=== PATIENT | male | born 1985 | race Caucasian/White ===

== ENCOUNTER 2022-07-14 17:43 | Emergency (ER) | payer MEDICAID, SELFPAY ==
[2022-07-14 17:50] VITALS: BP 115/72; PULSE 102; RESP 14; TEMP 36.9; O2SAT 100
[2022-07-14 18:00] VITALS: BP 115/72; PULSE 102; RESP 14; TEMP 36.9; O2SAT 100
--- NOTE | 2022-07-14 18:14 | ED.DENTAL ---
HPI - Dental/Oral General Chief complaint: Dental/Oral Stated complaint: Facial Swelling Time Seen by Provider: 07/14/22 18:14 Source: patient Mode of arrival: ambulatory History of Present Illness HPI Narrative: 36-year-old male presented for complaints of left lower dental pain and jaw swelling since yesterday. He also endorses treatment with amoxicillin on 06/28, but held onto 2 tablets and took them over the last 2 days. Denies fever, nausea, vomiting. Endorses multiple dental caries and broken teeth stating he would like to follow-up with a dentist and have them pulled when his insurance is available. He is taking Tylenol and ibuprofen for pain MD Complaint: tooth pain Related Data Allergies Allergy/AdvReac Type Severity Reaction Status Date / Time codeine AdvReac Mild NAUSEA/VOMI Verified 07/14/22 18:00 TING Review of Systems Review of Systems: CONSTITUTIONAL: Denies body aches, fever, chills ENT: Denies rhinorrhea, congestion, sore throat, or otalgia. Reports dental pain CARDIOVASCULAR: Denies chest pain, palpitations RESPIRATORY: Denies cough or dyspnea. SKIN: Denies rash, itching, or wounds. MUSCULOSKELETAL: Denies myalgia. NEUROLOGIC: Denies headache, numbness, tingling, or weakness. PMFSH Comments At time of signature, I have reviewed and agree with nursing past medical, surgical, social and family history unless otherwise noted. Please see nursing chart for further information. There is no relevant family history pertinent to the presenting complaint Exam Narrative: GENERAL: Appears in pain; no acute distress. HEAD: Normocephalic, atraumatic. EYES: EOMI. No redness or drainage. Conjunctivae normal. ENT: Dental pain location of #19 with multiple broken teeth and caries; abscess at site and surrounding gum swelling; Mucous membranes pink and moist. TMs normal bilaterally. CHEST: No respiratory distress. Clear to auscultation. HEART: Regular rate and rhythm. SKIN: Warm, dry, no rash. Normal skin turgor. NEURO: No focal deficits. Alert and oriented x3. Gait steady. Course Course Emergency Course: Patient is aware of diagnosis, understands and agrees to treatment plan. Anticipatory guidance given. Patient agrees to follow-up as directed and is aware of reasons to seek care at the emergency department. Portions of this record may have been created with voice recognition software Level of Care: Express Care Visit Vital Signs Vital signs: Vital Signs Temperature 98.5 F 07/14/22 17:50 Pulse Rate 102 H 07/14/22 17:50 Respiratory Rate 14 07/14/22 17:50 Blood Pressure 115/72 07/14/22 17:50 Pulse Oximetry 100 07/14/22 17:50 Oxygen Delivery Room Air 07/14/22 17:50 Temperature 98.5 F 07/14/22 18:00 Pulse Rate 102 H 07/14/22 18:00 Respiratory Rate 14 07/14/22 18:00 Blood Pressure 115/72 07/14/22 18:00 Pulse Oximetry 100 07/14/22 18:00 Oxygen Delivery Room Air 07/14/22 18:00 MDM - Dental/Oral MDM Narrative Medical decision making narrative: There are no focal signs of space occupying lesions that are compromising to the airway. Patient is non-toxic appearing. The floor of the mouth is soft with no signs of Iam's Angina; no induration below mandible, no neck pain. Patient is without trismus or drooling and able to swallow secretions. Abx prescribed. He declined IM ceftriaxone. Patient is appropriate for discharge home with dental follow up. Differential Diagnosis Differential diagnosis: Likely gingival abscess, dental caries, toothache, dental abscess, fracture of tooth and aphthous ulcer Discharge Plan Discharge Clinical Impression: Dental abscess Patient Disposition: Home, Self-Care Condition: Stable Instructions: Antibiotic Form, Dental Abscess (ED) Additional Instructions: Take antibiotic as directed May apply heat or ice to the face Gentle brushing and flossing. Rinse mouth with warm salt water at least 2 times a day. Raúl
== END 2022-07-14 18:29 | disposition home or self-care (01) ==
PROVIDERS: Emergency Provider Nurse Practitioner Family
DX: K04.7 Periapical abscess without sinus (principal)
CPT/HCPCS: 99203; G0463

== ENCOUNTER 2022-10-24 17:48 | Emergency (ER) | payer OTHER, SELFPAY ==
--- NOTE | 2022-10-24 17:52 | ED.SKABFB ---
HPI - Skin/Abscess/Foreign Bdy General Chief complaint: Skin/Abscess/Foreign Body Stated complaint: mites scabies or bed bugs Time Seen by Provider: 10/24/22 17:52 Source: patient and RN notes reviewed History of Present Illness HPI narrative: patient is a 37-year-old male who presents to the Urgent Care requesting treatment for scabies. Patient states he believes he has bedbugs with little black bugs all over his apartment. Patient states that they moved out and bagged all of their belongings and lack of bags. Patient states that the bedbug treatment has not improved his symptoms with the itching for 1 week. Patient appears to be under the influence of drugs with a severe paranoia. No other acute complaints. No acute distress noted. Patient aware of the plan of care. Some parts of this dictation were generated by voice recognition software and may contain typographical and/or grammatical inaccuracies. Related Data Allergies Allergy/AdvReac Type Severity Reaction Status Date / Time codeine AdvReac Mild NAUSEA/VOMI Verified 07/14/22 18:00 TING Review of Systems Review of Systems: CONSTITUTIONAL: Denies fever, chills, or sweats. EYES: Denies visual changes, redness, or discharge. ENT: Denies rhinorrhea, congestion, sore throat, or otalgia. CARDIOVASCULAR: Denies chest pain, palpitations, or edema. RESPIRATORY: Denies cough or dyspnea. GASTROINTESTINAL: Denies abdominal pain, nausea, vomiting, or diarrhea. GENITOURINARY: Denies dysuria or hematuria. SKIN: reports of severe itching and scabies MUSCULOSKELETAL: Denies back pain, joint pain, or myalgia. NEUROLOGIC: Denies headache, numbness, or weakness. All other systems reviewed are negative, except as documented in HPI. PMFSH Comments At the time of my signature, I reviewed and agree with the nursing past medical, surgical, social, and family history. There is no relevant family history pertinent to the patient complaint. Exam Narrative: GENERAL: This is a well-nourished, well-developed patient, in no apparent distress. HEAD: normocephalic, atraumatic. EYES: PERRL. Sclera clear/white. Vision is grossly intact. EARS: External ears normal NOSE: External nose normal with no obvious nasal discharge, nares without redness, no rhinorrhea. THROAT: Mucous membranes moist NECK: Neck supple SKIN: scattered circular open lesions to bilateral lower arms appears to be consistent with the use of drugs; Without signs of cellulitis NEURO: awake, alert, and oriented to person, place and time. There were no obvious focal neurologic abnormalities. EXTREMITIES: No clubbing, cyanosis, or edema. Course Course Level of Care: Express Care Visit Vital Signs Vital signs: Vital Signs Temperature 97.8 F 10/24/22 17:53 Pulse Rate 101 H 10/24/22 17:53 Respiratory Rate 20 10/24/22 17:53 Blood Pressure 125/75 10/24/22 17:53 Pulse Oximetry 100 10/24/22 17:53 Oxygen Delivery Room Air 10/24/22 17:53 Temperature 97.8 F 10/24/22 17:53 Pulse Rate 101 H 10/24/22 17:53 Respiratory Rate 20 10/24/22 17:53 Blood Pressure 125/75 10/24/22 17:53 Pulse Oximetry 100 10/24/22 17:53 Oxygen Delivery Room Air 10/24/22 17:53 reviewed MDM - Skin/Abscess/Foreign Bdy MDM Narrative Medical decision making narrative: advised patient to use the prescription as directed to treat for scabies. If you have bedbugs, you will need to call an [employer] business intelligence developer. Continue to bag the clothing and stay out of the home until the bugs have been treated. Follow-up with your PCP within 2-5 days or for worsening symptoms or failure to improve. Differential Diagnosis Differential diagnosis: Likely abscess of skin or subcutaneous tissue, viral exanthem, dermatophytosis, urticaria, eczema, insect bites and impetigo Critical Care Time Critical Care Time Critical Care Time: No Discharge Plan Discharge Clinical Impression: Scabies Patient Disposition: Home, Self-Care
[2022-10-24 17:53] VITALS: BP 125/75; PULSE 101; RESP 20; TEMP 36.6; O2SAT 100
== END 2022-10-24 18:32 | disposition home or self-care (01) ==
PROVIDERS: Emergency Provider Nurse Practitioner Family
DX: B86 Scabies (principal)
CPT/HCPCS: 99213; G0463

== ENCOUNTER 2022-12-05 19:38 | Emergency (ER) | payer OTHER, SELFPAY ==
[2022-12-05 19:44] VITALS: BP 151/84; PULSE 103; RESP 16; TEMP 36.6; O2SAT 100
--- NOTE | 2022-12-05 19:54 | ED.DENTAL ---
HPI - Dental/Oral General Chief complaint: Dental/Oral Stated complaint: tooth pain Time Seen by Provider: 12/05/22 19:54 Source: patient, RN notes reviewed and old records reviewed Mode of arrival: ambulatory Limitations: no limitations History of Present Illness HPI Narrative: 37 year old male presents to [facility] for rehabilitation care with complaints of dental pain to back left lower tooth which is obviously broken and decayed with numerous caries and missing teeth in mouth. Patient reports that he has been taking Ibuprofen and Tylenol for his pain with no MD Complaint: tooth pain Location: Tooth # (17) Onset (ago): day(s) (2-3) Severity scale (1-10): 10 Treatment prior to arrival: oral analgesic Related Data Allergies Allergy/AdvReac Type Severity Reaction Status Date / Time codeine AdvReac Mild NAUSEA/VOMI Verified 07/14/22 18:00 TING Review of Systems Review of Systems: CONSTITUTIONAL: Denies fever, chills, or sweats. ENT: Denies rhinorrhea, congestion, sore throat, or otalgia. Reports dental pain CARDIOVASCULAR: Denies chest pain, palpitations, or edema. RESPIRATORY: Denies cough or dyspnea. SKIN: Denies rash or itching. MUSCULOSKELETAL: Denies myalgia. NEUROLOGIC: Denies headache All systems reviewed & are unremarkable except as noted in HPI and below PMFSH Past Medical History Medical History History of dental problems Social History Social History Smoking packs per day: 0.5 Smoking cigarettes per day: 10.0 Smoking status: Current every day smoker Tobacco type: cigarettes Alcohol intake: unknown Alcohol use details: denies use Substance use type: does not use Gender identity (if verbalized by the patient): Male Comments At time of signature, agree with nursing past medical, surgical, social and family history. There is no relevant family history pertinent to the presenting complaint Exam Narrative: GENERAL: Well-appearing, well-nourished, and in no acute distress, unkept appearance. HEAD: Normocephalic, atraumatic. EYES: PERRLA and EOMI. ENT: Nares clear, no rhinorrhea or epistaxis. Mucous membranes moist. Missing teeth, broken teeth, caries very poor dentition, no facial swelling or any trismus noted no Iam angina noted. NECK: Supple. no lymphadenopathy CHEST: Clear to auscultation. No respiratory distress. SAO2 100% on room air HEART: Regular rate and rhythm. No murmur heard. Normal peripheral pulses. SKIN: Warm, dry, no rash. NEURO: No focal deficits. Alert and oriented x3. Course Course Emergency Course: Patient is aware of diagnosis, understands and agrees to treatment plan. Anticipatory guidance given. Patient agrees to follow-up as directed and is aware of reasons to seek care at the emergency department. Portions of this record may have been created with voice recognition software Level of Care: Express Care Visit Vital Signs Vital signs: Vital Signs Temperature 36.6 C 12/05/22 19:44 Pulse Rate 103 H 12/05/22 19:44 Respiratory Rate 16 12/05/22 19:44 Blood Pressure 151/84 H 12/05/22 19:44 Pulse Oximetry 100 12/05/22 19:44 Oxygen Delivery Room Air 12/05/22 19:44 Temperature 36.6 C 12/05/22 19:44 Pulse Rate 103 H 12/05/22 19:44 Respiratory Rate 16 12/05/22 19:44 Blood Pressure 151/84 H 12/05/22 19:44 Pulse Oximetry 100 12/05/22 19:44 Oxygen Delivery Room Air 12/05/22 19:44 Reviewed MDM - Dental/Oral MDM Narrative Medical decision making narrative: Patients pain and complaint coupled with physical findings are consistent with dentalgia. There are no focal signs of space occupying lesions that are compromising to the airway; no dysphagia, odynophagia, dysphonia, or dyspnea. No uvular deviation or soft palate edema. Patient is non-toxic appearing. The floor of the mouth is soft with no signs of Iam's Angina; no induration below m
== END 2022-12-05 20:04 | disposition home or self-care (01) ==
PROVIDERS: Emergency Provider Registered Nurse; PCP Emergency Medicine
DX: K04.7 Periapical abscess without sinus (principal); F17.210 Nicotine dependence, cigarettes, uncomplicated
CPT/HCPCS: 99213; G0463